=== PATIENT | female | born 1955 | race African-American/Black ===

== ENCOUNTER 2024-05-10 17:10 | Emergency (ER) | payer BC, MEDICAID ==
[~2024-05-10] VITALS: Ht 167.6 cm; Wt 73.0 kg
[2024-05-10 17:19] VITALS: O2SAT 98
[2024-05-11] MEDS: IBUPROFEN 600MG TABLET PO ONE (02:30)
[2024-05-11] MEDS: TRAMADOL 50MG TABLET PO ONE (02:56)
[2024-05-11 03:11] LABS: BASOPHILS % 0.9 % (0.0-2.0); HEMATOCRIT. 38.9 % (36.0-48.0); HEMOGLOBIN. 12.6 g/dL (12.0-16.0); MEAN CORPUSCULAR HEMOGLOBIN 29.1 pg (28.0-32.0); MEAN CORPUSCULAR HGB CONC 32.3 g/dL (31.0-37.0); MEAN CORPUSCULAR VOLUME 89.8 fL (81.0-99.0); MEAN PLATELET VOLUME 7.8 fl (7.4-10.4); MONOCYTES % 12.6 % (2.0-8.0); NEUTROPHILS % 51.5 % (40.0-76.0); PLATELET 208 x1000/uL (130-400); RED BLOOD CELL COUNT 4.33 mill/uL (4.2-5.4); WHITE BLOOD COUNT 6.9 x1000/uL (4.5-11.0)
[2024-05-11 03:12] LABS: CHLORIDE 106 mEq/L (98-107); POTASSIUM 4.3 mEq/L (3.5-5.1); SODIUM 141 mEq/L (136-145)
[2024-05-11 03:13] LABS: CARBON DIOXIDE 25 mEq/L (21-32)
[2024-05-11 03:18] LABS: CREATININE 0.9 mg/dL (0.6-1.0); GLUCOSE 106 mg/dL (70-105)
[2024-05-11 03:19] LABS: UREA NITROGEN BLOOD 8 mg/dL (9-23)
[2024-05-11 03:20] LABS: ALANINE AMINOTRANSFERASE 18 IU/L (10-49); ALBUMIN 4.5 g/dL (3.2-4.8); ASPARTATE AMINOTRANSFERASE 25 IU/L (<34)
[2024-05-11 03:21] LABS: BILIRUBIN TOTAL 0.6 mg/dL (0.1-1.0); PROTEIN TOTAL 7.8 g/dL (6.0-8.3)
[2024-05-11] MEDS ORDERED: IBUP-2029 MT (04:09)
[2024-05-11] MEDS ORDERED: IOHEXOL-300 100 ML BOTTLE ONE (07:17)
[2024-05-11 09:54] VITALS: BP 141/84; PULSE 87; RESP 18; TEMP 36.72516; O2SAT 98
== END 2024-05-11 11:39 | disposition left against medical advice (07) ==
LOC: ER 17:10
DX: S30.1XXA Contusion of abdominal wall, initial encounter (principal); Z88.0 Allergy status to penicillin; V89.2XXA Person injured in unspecified motor-vehicle accident, traffic, initial encounter; Y93.89 Activity, other specified; Y92.89 Other specified places as the place of occurrence of the external cause; Y99.8 Other external cause status
CPT/HCPCS: 99285; 74177; 80053; 85025; 36415; Q9967; 99284